=== PATIENT | male | born 1975 | race Caucasian/White ===

== ENCOUNTER → 2017-11-28 | Outpatient (CLI) | payer BC ==
[~2017-11-28] MED LIST: REGADENOSON 0.4 MG/5 ML SYR ONE
--- NOTE | 2017-11-28 17:34 | MYOCARDIAL PERFUSION SCAN ---
REQUESTING PHYSICIAN: Radha Villagran. STUDY TITLE: One-day nuclear medicine technetium-99m Cardiolite myocardial perfusion scan. INDICATION: Chest pain. EKG: Normal sinus rhythm at a ventricular rate of [address] abnormalities. Stress EKG with Lexiscan heart rate jose from 86-125 representing 70% maximum predicted heart rate. There were no significant ST changes or arrhythmias. TECHNIQUE: For the stress portion of the study, 31.7 mCi of technetium-99m Cardiolite IV was injected at 11:20 a.m. on 11/28/2017. Thirty minutes following the injection, imaging of the heart was performed in multiple projections. For the rest portion of the study, 10.7 mCi of technetium-99m Cardiolite was injected IV at 09:30 a.m. One hour following the injection, imaging of the heart was performed in the same projections. STUDY FINDINGS: Rotating raw images were reviewed in detail. Potential sources of attenuation included a diaphragmatic shadow and mild gut uptake impacting the inferior imaging border of the heart. There was no significant extracardiac pathologic uptake. The short axis, vertical long axis, and horizontal long axis images were reviewed in detail. There was normal myocardial perfusion throughout. No significant changes with stress from rest. End-diastolic volume was 107 mL. Calculated ejection fraction was 65% with no regional wall motion abnormalities. IMPRESSION: 1. Negative myocardial perfusion scan for Lexiscan induced ischemia. 2. Normal left ventricular size and function. Calculated ejection fraction of 65% with no regional wall motion abnormalities. 3. Nondiagnostic Lexiscan EKG due to inability to reach target heart rate.
== END | disposition home or self-care (01) ==
LOC: C.NUCL 08:49
PROVIDERS: ATTEND Physician Assistant
DX: R07.9 Chest pain, unspecified (principal)